=== PATIENT | male | born 1965 | race Caucasian/White ===

== ENCOUNTER → 2019-04-19 | Outpatient (CLI) | payer OTHER ==
[~2019-04-19] VITALS: Ht 182.9 cm; Wt 121.4 kg
[~2019-04-19] MED LIST: FLEXERIL 1010 MG/TAB PO; FLOMAX 0.40.4 MG/CAP PO; FLONASEALLERGY NS; LIPITOR20 MG PO; MOBIC15 MG PO; PRILOSEC 20MG20 MG PO; SINGULAIR 110 MG/TAB PO; SYNTHROID0.1 MG/TAB PO
[2019-04-19 12:29] VITALS: BP 133/96; PULSE 90
[2019-04-19 13:15] VITALS: BP 146/93; PULSE 82
== END ==
LOC: COL.RAD 11:39
DX: M51.06 Intervertebral disc disorders with myelopathy, lumbar region (principal)
CPT/HCPCS: J3301